=== PATIENT | male | born 1955 ===

== ENCOUNTER → 2023-05-11 | Outpatient (CLI) | payer OTHER, MEDICAID ==
[2023-05-12 08:06] LABS: PSA Free 1.56 ng/mL; Prostate Specific Antigen 6.7 ng/mL (0.0-4.0)
== END | disposition home or self-care (01) ==
LOC: LAB 09:33
PROVIDERS: ATTEND Urology
DX: N40.0 Benign prostatic hyperplasia without lower urinary tract symptoms (principal)
CPT/HCPCS: 84153; 84154